=== PATIENT | female | born 1985 | race Caucasian/White ===

== ENCOUNTER 2023-06-08 11:12 | Emergency (ER) | payer OTHER, BC, SELFPAY ==
[2023-06-08 11:25] VITALS: BP 134/59; PULSE 65; RESP 16; TEMP 36.8; O2SAT 98; BMI 34.7
--- NOTE | 2023-06-08 11:41 | DI.RAD.S_ITS ---
PROCEDURE: XR CHEST 1V INDICATIONS: chest pain TECHNIQUE: One view of the chest was acquired. COMPARISON: [facility], CR, XR CHEST 2 VIEWS, 04/10/2023, 18:14. FINDINGS: Surgical changes and devices: None. Lungs and pleura: Lungs are clear. No pleural effusions or pneumothorax. Mediastinum: Mediastinal contours appear normal. Heart size is normal. Bones and chest wall: No suspicious bony lesions. Overlying soft tissues appear unremarkable. IMPRESSION: No acute cardiopulmonary abnormality is seen. Dictated by: Jose Webster M.D. on 06/08/2023 at 11:16 Approved by: Jose Webster M.D. on 06/08/2023 at 11:17
--- NOTE | 2023-06-08 11:55 | PC.NURSE ---
Dr. Anderson requests to hold off on bloodwork untill pt is seen by him. Bloodwork order cancelled.
[2023-06-08 12:03] VITALS: PULSE 88; O2SAT 97
[2023-06-08 12:05] VITALS: BP 112/70; PULSE 86; RESP 14; O2SAT 99
--- NOTE | 2023-06-08 12:11 | ED_ITS ---
HPI - Chest Pain General Chief Complaint: Chest Pain Stated Complaint: chest pains/ hurts to breath Time Seen by Provider: 06/08/23 11:42 Source: patient Mode of arrival: Ambulatory Limitations: no limitations History of Present Illness HPI narrative: Patient is a 37-year-old female who arrives in the emergency department for waking up this morning with chest discomfort and also chest discomfort with taking a deep breath. She actually states her symptoms have vastly improved but not completely. No skin rashes. No fevers. No radiation of the pain. She describes it in the center in the left side of her chest. Not worse with palpation. No abdominal tenderness or nausea vomiting. No lower extremity swelling. Related Data Home Medications Medication Instructions Recorded Confirmed Multivitamins - 1 tab PO ##0 02/14/10 (-S) Allergies Allergy/AdvReac Type Severity Reaction Status Date / Time hydromorphone [From Dilaudid] AdvReac Verified 06/08/23 11:25 Review of Systems Review of Systems Narrative: See HPI Patient History Social History Smoking Status: Never smoker Smoking Status: Never smoker alcohol intake frequency: holidays/special occasions only Substance Use Type: does not use Exam Initial Vital Signs Initial Vital Signs: Vital Signs Temperature 98.3 F 06/08/23 11:25 Pulse Rate 65 06/08/23 11:25 Respiratory Rate 16 06/08/23 11:25 Blood Pressure 134/59 L 06/08/23 11:25 Pulse Oximetry 98 06/08/23 11:25 Oxygen Delivery Method Room Air 06/08/23 11:25 Const General: cooperative, comfortable and No ill appearing HENMT Head: normal to inspection and normocephalic Chest Chest: No crepitus and No tenderness Resp Effort & Inspection: normal respiratory effort Auscultation: clear to auscultation bilaterally Cardio Rate: regular rate Rhythm: regular rhythm GI Inspection: normal to inspection Skin General: no rashes or lesions noted Neuro General: patient alert, patient awake and moves all extremities Extrem General: normal to inspection and No edema Course Orders Ordered: ED Orders 06/08/23 11:41 XR chest 1V Stat Complete Blood Count AUTO DIFF Stat Comprehensive Metabolic Panel Stat Lipase Stat Troponin & CK Cardiac Panel Stat 06/08/23 12:53 EKG-12 Lead Stat Vital Signs Vital signs: Vital Signs - 8 hr 06/08/23 11:25 Temperature 98.3 F Pulse Rate 65 Respiratory Rate 16 Blood Pressure 134/59 L Pulse Oximetry 98 Oxygen Delivery Method Room Air MDM - Chest Pain Imaging Data Chest x-ray: Radiologist's Impression: PROCEDURE: XR CHEST 1V INDICATIONS: chest pain TECHNIQUE: One view of the chest was acquired. COMPARISON: [facility], CR, XR CHEST 2 VIEWS, 04/10/2023, 18:14. FINDINGS: Surgical changes and devices: None. Lungs and pleura: Lungs are clear. No pleural effusions or pneumothorax. Mediastinum: Mediastinal contours appear normal. Heart size is normal. Bones and chest wall: No suspicious bony lesions. Overlying soft tissues appear unremarkable. IMPRESSION: No acute cardiopulmonary abnormality is seen. ECG Data Attestation: I personally reviewed and interpreted this ECG as follows: Interpretation: Sinus rhythm Ventricular rate is 77 Normal axis Normal QRS Normal QTC No ST T wave changes MDM Narrative Medical decision making narrative: EKGs unremarkable, chest x-ray is unremarkable, patient is feeling much better than what she did earlier today. I have low suspicion for ACS. Low suspicion for pneumonia. No indication for antibiotics. Patient is safe for discharge home. She was given return precautions follow-up instructions. She expressed understanding and agreement. Discharge Plan Departure Patient Disposition: Home Clinical Impression: Atypical chest pain Instructions: DI for Atypical Chest Pain Activity Restrictions/Additional Instructions: Recommend that you contact your primary care doctor for a follow-up. Return to the emergency department for new or worsening symptoms. Prescriptions: No Action Multivitamins - (-S) 1 tab PO Qty: 0 Referrals: Jose Chen MD [Primary Care Provider] - Stand Alone Forms: Patient Portal/API
[2023-06-08 12:30] VITALS: BP 117/68; PULSE 79; RESP 12; O2SAT 100
[2023-06-08 13:00] VITALS: BP 114/70; PULSE 77; RESP 15; O2SAT 99
[2023-06-08 13:21] VITALS: BP 124/70; PULSE 91; RESP 16; O2SAT 100
== END 2023-06-08 13:22 | disposition home or self-care (01) ==
PROVIDERS: Emergency Provider Emergency Medicine; PCP Family Medicine
DX: R07.89 Other chest pain (principal)
CPT/HCPCS: 71045; 93005; 99283